=== PATIENT | female | born 1990 | race Caucasian/White ===

== ENCOUNTER 2024-08-07 11:56 | Day surgery (SDC) | payer OTHER ==
[~2024-08-07] VITALS: Ht 160 cm; Wt 96.2 kg
[~2024-08-07 11:56] MED LIST: Glycopyrrolate 0.2 MG/ML 1MLVIAL ONE; Lactated Ringer's 1,000 ML IV ONE; Lidocaine 2% 5 ML SDV ONE; Lidocaine HCl/Pf 1% 5 ML VIAL ONE; Ondansetron HCl 2 MG / ML 2ML Vial ONE; ePHEDrine Sulfate 50 MG/ML 1ML Injection ONE; propofoL 50 ML IV ONE
[2024-08-07] MEDS ORDERED: LOPE2C (12:46)
[2024-08-07] MEDS ORDERED: GABA100 PO (12:46)
[2024-08-07] MEDS ORDERED: CLINGEL TOP (12:46)
[2024-08-07] MEDS ORDERED: ONDA4ODT MM (12:47)
[2024-08-07] MEDS ORDERED: MELO7.5 (12:47)
[2024-08-07] MEDS ORDERED: OMEP20ER (12:47)
[2024-08-07] MEDS ORDERED: Lactated Ringer's 1,000 ML IV ONE (14:16)
[2024-08-07] MEDS ORDERED: Midazolam HCL 1 MG/ML 5MLVIAL ONE (14:31)
[2024-08-07] MEDS ORDERED: propofoL 50 ML IV ONE (15:15)
--- NOTE | 2024-08-07 16:02 | NUR ---
08/07/24 1602 Harsha Gamez 6MLS NS INJECTED FOR POLYPECTOMY.
== END 2024-08-07 16:10 | disposition home or self-care (01) ==
LOC: ORSCSDS 11:56
DX: K62.5 Hemorrhage of anus and rectum (principal); R19.4 Change in bowel habit; D12.0 Benign neoplasm of cecum; R10.84 Generalized abdominal pain; R11.2 Nausea with vomiting, unspecified; K29.70 Gastritis, unspecified, without bleeding; K64.4 Residual hemorrhoidal skin tags; K44.9 Diaphragmatic hernia without obstruction or gangrene; Z87.891 Personal history of nicotine dependence; E28.2 Polycystic ovarian syndrome; F43.10 Post-traumatic stress disorder, unspecified; Z79.899 Other long term (current) drug therapy
CPT/HCPCS: 88305; 88342; J2003; J2250; J2405; J2704; J7120

== ENCOUNTER 2025-02-13 09:10 | Day surgery (SDC) | payer OTHER ==
[~2025-02-13] VITALS: Ht 157.5 cm; Wt 88.5 kg
[2025-02-13] VITALS (9 sets, daily range): BP systolic 130–155; BP diastolic 85–104
[~2025-02-13 09:10] MED LIST changes: +CLINGEL TOP; +FentaNYL Citrate 50 MCG/ML 5 ML Injection ONE; +GABA300 PO; -Glycopyrrolate 0.2 MG/ML 1MLVIAL ONE; +LOPE2C PO; -Lactated Ringer's 1,000 ML IV ONE; -Lidocaine 2% 5 ML SDV ONE; -Lidocaine HCl/Pf 1% 5 ML VIAL ONE; +MELO7.5; +Midazolam HCl 1MG / ML 2ML Vial ONE; +OMEP20ER; +ONDA4ODT MM; -Ondansetron HCl 2 MG / ML 2ML Vial ONE; +Ondansetron Odt8 MG MM; +PANT40 PO; +PROM12.5S PR; +Percocet 5-3251 EACH PO; -ePHEDrine Sulfate 50 MG/ML 1ML Injection ONE; -propofoL 50 ML IV ONE
[2025-02-13] MEDS ORDERED: Dexamethasone Sod Phos 10 MG/ML 1ML VIAL ONE (09:11)
[2025-02-13] MEDS ORDERED: Ondansetron HCl 2 MG / ML 2ML Vial ONE (09:11)
--- NOTE | 2025-02-13 09:44 | NUR ---
History, Chart, Medications and Allergies reviewed before start of procedure. Pre-Op teaching done. Pt verbalizes understanding. Patient confirms NPO status and agrees with scheduled surgery. PT PARTNER AT BS.
[2025-02-13] MEDS ORDERED: Bupivacaine 0.5% W/EPI 1:200000 SDV 30 ML Vial ONE (10:15)
[2025-02-13] MEDS ORDERED: Sugammadex Sodium 200 MG/2ML SDV (100 MG/ML) ONE (11:03)
[2025-02-13] MEDS ORDERED: HYDROmorphone HCl/Pf 1MG SYR ONE (11:42)
[2025-02-13] MEDS ORDERED: OxyCODONE 5 mg/Acetamin 325 mg TABLET PO PRN (12:00)
[2025-02-13] MEDS ORDERED: HydrALAZINE HCl 20 MG / ML 1ML Vial IV PRN (12:10)
[2025-02-13] MEDS ORDERED: FentaNYL Citrate 50 MCG/ML 2 ML Injection IV PRN ×2 (12:10→12:20)
[2025-02-13] MEDS ORDERED: Ondansetron HCl 2 MG / ML 2ML Vial IV PRN (12:15)
[2025-02-13] MEDS ORDERED: Albuterol 2.5 MG/3 ML VIAL INH PRN (12:15)
[2025-02-13] MEDS ORDERED: HYDROmorphone HCl/Pf 1MG SYR IV PRN ×2 (12:15)
[2025-02-13] MEDS ORDERED: ePHEDrine Sulfate 50 MG/ML 1ML Injection IV PRN (12:15)
[2025-02-13] MEDS ORDERED: Metoclopramide HCl 5MG / ML 2ML Vial IV PRN (12:15)
--- NOTE | 2025-02-13 12:23 | NUR ---
GLASSES RETURNED TO PATIENT
--- NOTE | 2025-02-13 13:17 | NUR ---
TO STEP POST LAP CONSTANTINO. ABD INCISIONS X 4 CDI WITH SURGICAL GLUE. REPORTS 7/10 PAIN, TEARFUL. PARTNER AT BEDSIDE. JULIA PO WELL. ICE THERAPY PROVIDED. VERBALIZED UNDERSTANDING OF DC INSTRUCTIONS, WOUND CARE, FOLLOW UP. DC'D IV INTACT. DC'D VIA WC TO PRIVATE CAR WITH OUTSIDE CUTTER.
[2025-02-13] MEDS ORDERED: Rocuronium Bromide 10 MG/ML 5ML Injection IV ONE (13:31)
[2025-02-13] MEDS ORDERED: FentaNYL Citrate 50 MCG/ML 2 ML Injection ONE (13:53)
== END 2025-02-13 13:15 | disposition home or self-care (01) ==
LOC: ORSCMMR 09:10 → ORD 10:30 → ORSCMMR 13:15
PROVIDERS: Surgery
PROC: 0FT44ZZ Resection of Gallbladder, Percutaneous Endoscopic Approach (ICD-10-PCS; principal; 2025-02-13 10:30)
PROC: 8E0W4CZ Robotic Assisted Procedure of Trunk Region, Percutaneous Endoscopic Approach (ICD-10-PCS; principal; 2025-02-13 10:30)
DX: K80.10 Calculus of gallbladder with chronic cholecystitis without obstruction (principal); K21.9 Gastro-esophageal reflux disease without esophagitis; Z87.891 Personal history of nicotine dependence; E28.2 Polycystic ovarian syndrome; E66.9 Obesity, unspecified; Z68.35 Body mass index [BMI] 35.0-35.9, adult; F43.10 Post-traumatic stress disorder, unspecified; F41.9 Anxiety disorder, unspecified; F32.A Depression, unspecified; Z79.899 Other long term (current) drug therapy
CPT/HCPCS: 88304; A9270; J1100; J1171; J2250; J2405; J2704; J3010; J7120